=== PATIENT | male | born 2000 | race Hispanic/Latino ===

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

== ENCOUNTER 2020-09-21 07:40 | Emergency (ER) | payer MEDICAID ==
[~2020-09-21] VITALS: Ht 180.3 cm; Wt 77.1 kg
[2020-09-21 07:41] VITALS: BP 144/73
[2020-09-21 07:42] VITALS: BP 144/73
[2020-09-21 08:27] LABS: APPEARANCE,URINE SLIGHTLY CLOUDY (CLEAR); COLOR,URINE YELLOW (YELLOW)
[2020-09-21 08:29] LABS: BILIRUBIN,URINE N (NEGATIVE); GLUCOSE, URINE (UA) NEGATIVE (NEGATIVE); KETONES,URINE NEGATIVE (NEGATIVE); LEUKOCYTE ESTERASE ,URINE SMALL (NEGATIVE); NITRATE,URINE NEGATIVE (NEGATIVE); OCCULT BLOOD,URINE NEGATIVE (NEGATIVE); PROTEIN,URINE NEGATIVE (NEGATIVE); UROBILINOGEN,URINE 0.2 mg/dL (0.2-1.0)
[2020-09-21 08:38] LABS: BACTERIA,URINE Moderate /HPF (None Seen); RBC,URINE 0-1 /HPF (0-1); SQUAMOUS EPITHELIAL CELL,UR 0-2 /HPF (0-2); WBC,URINE 51-100 /HPF (0-1)
[2020-09-21] MEDS ORDERED: DOXY-336 PO (08:43)
[2020-09-21] MEDS ORDERED: CEFTRIAXONE 500MG VIAL IM ONE ×2 (09:00→09:30)
[2020-09-21 09:40] LABS: RAPID PLASMA REAGIN NONREACTIVE (NONREACTIVE)
[2020-09-23 23:08] LABS: CHLAMYDIA DNA N.A.AMPLIFY Positive (Negative)
== END 2020-09-21 09:49 | disposition home or self-care (01) ==
LOC: EDH 07:40
DX: A64 Unspecified sexually transmitted disease (principal)
CPT/HCPCS: 36415; 81001; 86592; 86701; 87088; 87390; 87486; 87798; 96372; 99283; J0696; 87797

== ENCOUNTER 2021-02-18 06:08 | Emergency (ER) | payer MEDICAID ==
[~2021-02-18] VITALS: Ht 180.3 cm; Wt 83.5 kg
[~2021-02-18 06:08] MED LIST: DOXY-336 PO
[2021-02-18] MEDS ORDERED: PANTOPRAZOLE 40 MG/VIAL ONE (06:49)
[2021-02-18] MEDS ORDERED: PANTOPRAZOLE 40 MG/VIAL IVP ONE (07:00)
[2021-02-18 07:03] LABS: BASOPHILS % (AUTO) 0.5 % (0.0-5.0); EOSINOPHILS % (AUTO) 0.8 % (0.0-8.0); LYMPHOCYTES % (AUTO) 26.1 % (21.0-51.0); MEAN CORPUSCULAR HEMOGLOBIN 30.1 pg (27.0-33.0); MEAN CORPUSCULAR HGB CONC 34.1 g/dL (32.0-36.0); MEAN CORPUSCULAR VOLUME 88.2 fL (80-100); NEUTROPHILS % (AUTO) 66.3 % (40.0-77.0); PLATELET COUNT (AUTO) 295 K/uL (130-400); RED BLOOD CELL COUNT(AUTO) 4.99 MIL/uL (4.50-6.20); RED CELL DISTRIBUTION WIDTH 12.7 % (11.0-15.5); WHITE BLOOD COUNT (AUTO) 13.3 K/uL (4.8-10.8)
[2021-02-18 07:05] LABS: APPEARANCE,URINE Clear (CLEAR); BILIRUBIN,URINE Negative (NEGATIVE); COLOR,URINE Yellow (YELLOW); GLUCOSE, URINE (UA) Negative (NEGATIVE); KETONES,URINE Negative (NEGATIVE); LEUKOCYTE ESTERASE ,URINE Negative (NEGATIVE); NITRATE,URINE Negative (NEGATIVE); OCCULT BLOOD,URINE Negative (NEGATIVE); PH,URINE 5.5 (5.0-8.0); PROTEIN,URINE Negative (NEGATIVE); UROBILINOGEN,URINE 0.2 mg/dL (0.2-1.0)
[2021-02-18 07:16] LABS: ALBUMIN 4.3 g/dL (3.5-5.0); BILIRUBIN,TOTAL 0.3 mg/dL (0.2-1.0); CREATININE 0.9 mg/dL (0.5-1.5); POTASSIUM 3.9 mmol/L (3.5-5.1); TOTAL PROTEIN, SERUM 7.6 g/dL (6.0-8.3)
[2021-02-18 08:58] LABS: HEMATOCRIT 44.3 % (42-54); MEAN CORPUSCULAR HGB CONC 34.1 g/dL (32.0-36.0); MEAN CORPUSCULAR VOLUME 88.1 fL (80-100); RED BLOOD CELL COUNT(AUTO) 5.03 MIL/uL (4.50-6.20); RED CELL DISTRIBUTION WIDTH 12.9 % (11.0-15.5); WHITE BLOOD COUNT (AUTO) 15.2 K/uL (4.8-10.8)
[2021-02-18 09:10] VITALS: BP 116/73
[2021-02-18 09:38] LABS: AMPHET/METH SCREEN,URINE NEGATIVE (NEGATIVE); BARBITURATE SCREEN, URINE NEGATIVE (NEGATIVE); BENZODIAZEPINES SCREEN,URINE POSITIVE (NEGATIVE); CANNABINOID SCREEN,URINE POSITIVE (NEGATIVE); COCAINE SCREEN,URINE POSITIVE (NEGATIVE); OPIATE SCREEN,URINE NEGATIVE (NEGATIVE); PHENCYCLIDINE SCREEN,URINE NEGATIVE (NEGATIVE)
== END 2021-02-18 09:35 | disposition home or self-care (01) ==
LOC: EDH 06:08
DX: K29.20 Alcoholic gastritis without bleeding (principal)
CPT/HCPCS: 36415; 74018; 80053; 80305; 81003; 82150; 85025; 85027; 96374; C9113

== ENCOUNTER 2022-02-16 01:21 | Emergency (ER) | payer MEDICAID ==
[~2022-02-16] VITALS: Ht 177.8 cm; Wt 79.8 kg
[~2022-02-16 01:21] MED LIST changes: -DOXY-336 PO; +DOXY-469 PO
[2022-02-16 02:40] VITALS: BP 121/69
== END 2022-02-16 04:04 | disposition left against medical advice (07) ==
LOC: EDH 01:21
DX: J02.9 Acute pharyngitis, unspecified (principal); Z20.822 Contact with and (suspected) exposure to COVID-19; H92.02 Otalgia, left ear
CPT/HCPCS: 99283; 87635; 87880; 87804 ×2; C9803

== ENCOUNTER 2022-09-28 13:57 | Emergency (ER) | payer MEDICAID ==
[~2022-09-28] VITALS: Ht 177.8 cm; Wt 81.6 kg
[2022-09-28 13:57] VITALS: BP 116/90; PULSE 77; RESP 16
[2022-09-28] MEDS ORDERED: IBUP-2070 PO (14:49)
== END 2022-09-28 15:00 | disposition home or self-care (01) ==
LOC: EDH 13:57
DX: S66.811A Strain of other specified muscles, fascia and tendons at wrist and hand level, right hand, initial encounter (principal); X58.XXXA Exposure to other specified factors, initial encounter; Y93.89 Activity, other specified; Y92.89 Other specified places as the place of occurrence of the external cause; Y99.8 Other external cause status
CPT/HCPCS: 73130